=== PATIENT | female | born 1970 | race Two or more races ===

== ENCOUNTER 2022-05-16 09:58 | Emergency (ER) | payer SELFPAY ==
[~2022-05-16] VITALS: Ht 160 cm; Wt 81.6 kg
[2022-05-16] MEDS ORDERED: cloNIDine HCL 0.1 MG TAB PO ONE (10:15)
[2022-05-16] MEDS ORDERED: HYDR-4798 PO (12:59)
[2022-05-16] MEDS ORDERED: MORPHINE SULFATE 4 MG/ML SYR/VIAL IV ONE (13:15)
[2022-05-16] MEDS ORDERED: ONDANSETRON HCL 4 MG/2 ML VIAL IV ONE (13:15)
[2022-05-16 14:33] VITALS: BP 129/86
== END 2022-05-16 14:34 | disposition home or self-care (01) ==
LOC: ER 09:58
DX: S82.854A Nondisplaced trimalleolar fracture of right lower leg, initial encounter for closed fracture (principal); I16.0 Hypertensive urgency; W01.0XXA Fall on same level from slipping, tripping and stumbling without subsequent striking against object, initial encounter; Y93.89 Activity, other specified; Y92.89 Other specified places as the place of occurrence of the external cause; Y99.8 Other external cause status
CPT/HCPCS: 29515; 73600; 96374; 96375; 99284; J2270; J2405